=== PATIENT | female | born 1970 | race Caucasian/White ===

== ENCOUNTER 2024-04-01 14:49 | Outpatient (CLI) | payer OTHER, SELFPAY ==
--- NOTE | ~2024-04-01 | CT_ITS ---
EXAMINATION: CT knee LT wo con DATE: 04/01/2024 15:31 INDICATION: Left knee pain TECHNIQUE: High resolution computed tomography (CT) of the left knee was performed without intravenou s contrast. Additional sagittal and coronal reconstructions were performed. Automated exposure contro l and iterative reconstruction technique were employed. The dose-length product was 454.46 mGy-cm. COMPARISON: Radiographs dated 02/27/2024 FINDINGS: Bone alignment is normal. No fracture. Joint spaces appear normal on nonweightbearing imaging. No lef t knee joint effusion. Prominent enthesophytes at the anterior tibial tuberosity and patellar inserti ons of the patellar and distal quadriceps tendons. 2.7 x 1.7 x 0.8 cm Alston's cyst. Soft tissues are unremarkable. IMPRESSION: 1. Prominent enthesophytes at the patellar and anterior tibial tuberosity insertions of the quadricep s and patellar tendons. 2. Small Alston's cyst. Reviewed, dictated and finalized at location A. TESTER IMPRESSION: 1. Prominent enthesophytes at the patellar and anterior tibial tuberosity inser tions of the quadriceps and patellar tendons. 2. Small Alston's cyst.
== END 2024-04-01 14:50 | disposition home or self-care (01) ==
LOC: ANHIMG 14:55
PROVIDERS: PCP Internal Medicine; Visit Provider Internal Medicine
DX: M76.891 Other specified enthesopathies of right lower limb, excluding foot (principal); S89.92XA Unspecified injury of left lower leg, initial encounter
CPT/HCPCS: 73700